=== PATIENT | male | born 1950 | race Caucasian/White ===

== ENCOUNTER 2019-01-16 23:14 | Emergency (ER) | payer BC ==
[~2019-01-16] VITALS: Ht 167.6 cm; Wt 101.6 kg
[~2019-01-16 23:14] MED LIST: ADULT LOW DOSE81 MG PO; KEFLEX500 M1 PO; LASIX; METFORMIN HCL500 MG; SPIRONOLACTONE25 M1; VICODIN
[2019-01-16] MEDS ORDERED: HYDROCHLOROTH12.5 M1 (23:28)
[2019-01-16] MEDS ORDERED: COLESTIPOL HCL1 G1 (23:29)
[2019-01-17] MEDS ORDERED: TRAMADOL 50 MG50 MG PO (00:38)
[2019-01-17] MEDS ORDERED: ROXICODONE5 M2 PO (01:13)
[2019-01-17 01:17] VITALS: BP 134/80
--- NOTE | 2019-01-17 11:23 | EKG ---
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
== END 2019-01-17 01:17 | disposition home or self-care (01) ==
LOC: M.ERS 23:14
DX: S20.212A Contusion of left front wall of thorax, initial encounter (principal); K74.60 Unspecified cirrhosis of liver; Z90.49 Acquired absence of other specified parts of digestive tract; W01.0XXA Fall on same level from slipping, tripping and stumbling without subsequent striking against object, initial encounter; Y92.89 Other specified places as the place of occurrence of the external cause; Y93.89 Activity, other specified; Y99.8 Other external cause status

== ENCOUNTER 2020-01-07 05:56 | Inpatient (IN) | payer OTHER ==
[~2020-01-07] VITALS: Ht 167.6 cm; Wt 107.4 kg
[~2020-01-07 05:56] MED LIST changes: +COLESTIPOL HCL1 G1 PO; +HYDROCHLOROTH12.5 M1; -METFORMIN HCL500 MG; +METFORMIN HCL500 MG PO; +ROXICODONE5 M2 PO; +TRAMADOL 50 MG50 MG PO
[2020-01-07 05:59] VITALS: BP 191/102
[2020-01-07] MEDS ORDERED: TOPROL XL50 MG PO (06:11)
[2020-01-07] MEDS ORDERED: LASIX 20 MG TAB20 MG PO (06:12)
[2020-01-07] MEDS ORDERED: GLYBURIDE PO (06:13)
[2020-01-07] MEDS ORDERED: ALLEGRA ALLERG180 MG PO (06:14)
[2020-01-07 06:32] LABS: HEMATOCRIT 41.7 % (42.0-52.0); HEMOGLOBIN 14.1 gm/dL (14.0-18.0); MCH 27.4 pg (26.0-34.0); MCHC 33.7 g/dL (28.0-37.0); MCV 81.3 fL (80.0-100.0); MPV 10.5 fl. (7.2-11.1); NUCLEATED RBCS 1 /100WBC; RBC 5.13 mil/uL (4.50-6.00); RDW-CV 16.1 % (10.5-14.5)
[2020-01-07 06:33] LABS: WBC 1.9 thou/uL (4.0-11.0)
[2020-01-07 06:34] LABS: CALCIUM 8.3 mg/dL (8.5-10.1); CREATININE 1.1 mg/dL (0.6-1.3); PLATELET COUNT* 46 thou/uL (150-400); POTASSIUM 3.5 mmol/L (3.5-5.1)
[2020-01-07 06:42] LABS: INR 1.2; PROTIME 11.9 Seconds (9.20-11.50)
[2020-01-07 06:44] LABS: ALBUMIN 3.6 g/dL (3.4-5.0)
[2020-01-07 07:09] LABS: ABSOLUTE LYMPHOCYTES 0.6 thou/uL (0.8-5.3); ABSOLUTE MONOCYTES 0.2 thou/uL (0.0-1.2); ABSOLUTE NEUTROPHILS 1.1 thou/uL (1.6-8.1); ATYPICAL LYMPHS 10 %; PLATELET ESTIMATE DECREASED
[2020-01-07 07:27] LABS: URINE BLOOD NEGATIVE (Negative); URINE CLARITY CLEAR; URINE COLOR YELLOW; URINE GLUCOSE-RANDOM NEGATIVE (Negative); URINE KETONES NEGATIVE (Negative); URINE LEUKOCYTES-REFLEX NEGATIVE (Negative); URINE NITRITE-REFLEX NEGATIVE (Negative); URINE PROTEIN TRACE (Negative); URINE SPECIFIC GRAVITY 1.025 (1.005-1.030)
[2020-01-07 07:38] LABS: ICTOTEST (BILI CONFIRMATORY) Negative (Negative); URINE BILIRUBIN 1+ (Negative)
--- NOTE | 2020-01-07 07:52 | NUR ---
DR HAMPTON AT BEDSIDE, EXPLAINING POC WITH PT. PT VERBALIZES UNDERSTANDING
[2020-01-07 12:27] VITALS: BP 174/84
--- NOTE | 2020-01-07 12:46 | NUR ---
DR MEJIA FROM [facility] CALLED IN REFERENCE TO CONSULT, PT STATUS GIVEN TO . NO NEW PHYSICIAN ORDERS AT THIS TIME.
[2020-01-07 13:00] VITALS: BP 166/91
[2020-01-07 13:37] VITALS: BP 174/84
--- NOTE | 2020-01-07 14:00 | NUR ---
ASSUMED CARE OF PATIENT THIS AFTERNOON FROM ER. PT IS DOING WELL AND HAS NO CO OF PAIN OR NAUSEA. PT WAS EDUCATED ON PLAN OF CARE AND DISEASE PROCESS, FALL SAFETY, AND USING THE CALL LIGHT FOR ASSISTANCE. WILL CONTINUE TO MONITOR.
--- NOTE | 2020-01-07 15:29 | EKG ---
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
[2020-01-07 20:00] VITALS: BP 165/92
[2020-01-08] VITALS: BP 171/92
[2020-01-08 03:51] VITALS: BP 163/93; BP 1638/93
--- NOTE | 2020-01-08 06:21 | NUR ---
ASSUMED CARE OF PT AFTER REPORT AT 1930. PT A&OX4. VSS. PHYSICAL ASSESSMENT COMPLETED AND CHARTED. PT ON RA. PT TRACING SR ON TELE. PT UPADLIB TO RESTROOM. PT COMPLAINED OF HEADACHE-MED GIVEN PER SEP. INSTRUCTED ON NPO POST MIDNIGHT FOR STRESSTEST. COMMUNICATES UNDERSTANDING. CALL LIGHT WITHIN REACH.
[2020-01-08 08:00] VITALS: BP 162/93
[2020-01-08 08:06] LABS: ABSOLUTE LYMPHOCYTES 0.9 thou/uL (0.8-5.3); ABSOLUTE MONOCYTES 0.2 thou/uL (0.0-1.2); ABSOLUTE NEUTROPHILS 1.3 thou/uL (1.6-8.1); BASOPHILS 0.9 %; HEMATOCRIT 43.4 % (42.0-52.0); HEMOGLOBIN 14.4 gm/dL (14.0-18.0); LYMPHOCYTES 36.7 %; MCH 27.2 pg (26.0-34.0); MCHC 33.3 g/dL (28.0-37.0); MCV 81.6 fL (80.0-100.0); MPV 10.1 fl. (7.2-11.1); NUCLEATED RBCS 0 /100WBC; PLATELET COUNT* 50 thou/uL (150-400); POLYS 52.4 %; RBC 5.32 mil/uL (4.50-6.00); RDW-CV 15.6 % (10.5-14.5); WBC 2.4 thou/uL (4.0-11.0)
[2020-01-08 08:13] LABS: CALCIUM 8.1 mg/dL (8.5-10.1); CREATININE 1.1 mg/dL (0.6-1.3); POTASSIUM 3.7 mmol/L (3.5-5.1)
--- NOTE | 2020-01-08 10:51 | NUR ---
ASSUMED CARE OF PATIENT THIS AM AT 0730. PATIENT IS ALERT AND ORIENTED X 4. HE DENIES PAIN AND DISCOMFORT. PLANS FOR STRESS TEST TODAY. PATIENT KEPT NPO FOR PROCEDURE. TELE SHOWS NSR. HE CONTINUES IN NEUTRAPENIC PRECAUTIONS. PATIENT IS UP IN THE ROOM INDEPENDENTLY.
[2020-01-08] MEDS ORDERED: COZAAR 50 MG TA50 M1 PO (14:01)
--- NOTE | 2020-01-08 14:24 | NUR ---
Pt is A&O. Resides at home with . Independent. No DME. No hx of HH or SNF. Pt to dc today pending stress test. No needs.
[2020-01-08 16:00] VITALS: BP 155/87
[2020-01-08 20:00] VITALS: BP 137/96
[2020-01-08 23:44] VITALS: BP 156/84
[2020-01-09 04:00] VITALS: BP 153/90
--- NOTE | 2020-01-09 05:15 | NUR ---
ASSUMED CARE OF PT AFTER REPORT TAT 193. PT A&OX4. VSS. PHYSICAL ASSESSMENT COMPLETED AND CHARTED. PT ON RA. PT TRACING SR ON TELE. PT UPADLIB TO RESTROOM. PT DENIES ANY PAIN OR DISCOMFORT. PT FOR 2ND PART OF STRES TEST TODAY. CALL LIGHT WITHIN REACH.
[2020-01-09 08:00] VITALS: BP 177/94
[2020-01-09 08:59] LABS: CHOLESTEROL 136 mg/dL (<200); HDL CHOLESTEROL 24 mg/dL (>40); LDL CHOLESTEROL 60 mg/dL (<100); SERUM ASSESSMENT Clear; TC:HDL 5.7 Ratio (Not establshd); TRIGLYCERIDE 262 mg/dL (<150); VLDL 52 mg/dL (<40)
[2020-01-09 12:00] VITALS: BP 146/90
--- NOTE | 2020-01-09 12:19 | NUR ---
2nd part of Pt's stress test to be completed today, if negative, Pt can dc home. Following.
--- NOTE | 2020-01-09 14:24 | CARDNUC ---
[place] [address] CARDIAC NUCLEAR IMAGING REPORT Name: ROSARIO JHAVERI JR Room: [address] IN [facility]#: [id number] Admission: 01/07/20 Attend Phys: Toribio Erickson, Discharge: Date of : 50 Date of Service: 01/09/20 1423 Report #: [id number] THIS REPORT FOR: cc: Nica Gonzales MD, Jennifer MD Liston, Michael J. MD [facility] ~ APPROVED REPORT Imaging Protocol: Stress Tc-99m/Rest Tc-99m 2 days Study performed: 01/07/2020 11:54:00 Indication: Chest pain, Dyspnea Patient Location: In-Patient Room #: 204 Stress Tech: Dee Prasad Stress Nurse: Pricilla Martinez RN Ht: 5 ft 6 in Wt: 235 lbs BSA: 2.14 m2 BMI: 37.92 Medical History Medical History: Diabetes Medications: colestid, lasix, cozaar, metoprolol, hudralazine Allergies: No known drug allergies Cardiac Risk Factors: Age, DM Previous Cardiac Procedures: PCI Exercise History: Sedentary Resting Data Rest SPECT myocardial perfusion imaging was performed in supine position 60 minutes following the intravenous injection of 36.0 mCi of Tc-99m Sestamibi. Time of rest injection: 11:45 The images were gated to evaluate regional wall motion and calculate left ventricular ejection fraction. Administration Route: IV Administration Site: Left Arm Pharmacologic Stress Pharmacologic stress test was performed by injecting Regadenoson 0.4 mg IV push over 10-15 seconds immediately followed by the intravenous injection of 31.2 mCi of Tc-99m Sestamibi. Time of stress injection: 12:05 Date: 01/08/2020 [place] [address] CARDIAC NUCLEAR IMAGING REPORT Name: ROSARIO JHAVERI JR Room: [address] IN ..#: [id number] Admission: 01/07/20 Attend Phys: Toribio Erickson, Discharge: Date of : 50 Date of Service: 01/09/20 1423 Report #: [id number] Administration Route: IV Administration Site: Left AC Heart Rate at time of stress injection: 124 bpm. Gated Stress SPECT was performed 40 minutes after stress injection. The images were gated to evaluate regional wall motion and calculate left ventricular ejection fraction. Prone imaging was performed. Stress Test Details Stress Test: Pharmacologic stress testing performed using 0.4 mg of regadenoson per 5 mL given IV over 10 seconds. Reason for pharmacologic stress test: physical limitation. HR Max Heart Rate (APMHR): 151 bpm Resting HR: 77 bpm Target HR (85% APMHR): 128 bpm Max HR Achieved: 124 bpm % of APMHR: 82 Recovery HR: 106 bpm BP Resting BP: 177/91 mmHg Max BP: 183/94 mmHg Recovery BP: 167/95 mmHg ECG Resting ECG: Sinus Rhythm Stress ECG: Sinus Tachycardia ST Change: None Arrhythmia: None Recovery ECG: Sinus Rhythm Recovery ST Change: None Recovery Arrhythmia: None Clinical Reason for Termination: Completed protocol The patient tolerated Lexiscan protocol without significant cardiac symptoms. Stress ECG Conclusion The baseline twelve-lead EKG shows sinus rhythm without significant ST segment or T wave abnormality. EKGs obtained during and post Lexiscan infusion show sinus rhythm and sinus tachycardia with no significant ST segment or T wave changes when compared to baseline. There were no stress-induced arrhythmias[place] [address] CARDIAC NUCLEAR IMAGING REPORT Name: ROSARIO JHAVERI JR Room: [address]#: [id number] Admission: 01/07/20 Attend Phys: Toribio Erickson, Discharge: Date of : 50 Date of Service: 01/09/20 1423 Report #: [id number] Study: Good Artifact: Mild Diaphragmatic artifact Study Data Post stress, the left ventricular ejection was 75%.. Perfusion Perfusion images obtained in the supine position at rest and post Lexiscan stress show photopenia of the inferior wall that resolves completely with post-rest prone imaging suggesting diaphragmatic attenuation artifact. No other significant fixed or reversible defects are identified. Wall Motion Normal left ventricular wall motion. Nuclear Conclusion ECG Findings: negative for ischemia Clinical Findings: negative for ischemia Nuclear Findings: negative for ischemia Exercise Capacity: not assessed Left Ventricular Function: normal Risk Study: low Myocardial perfusion images show no defect to suggest infarct or ischemia. Left ventricular systolic function appears normal on gated studies. This is a low risk study. <Conclusion> The baseline twelve-lead EKG shows sinus rhythm without significant ST segment or T wave abnormality. EKGs obtained during and post Lexiscan infusion show sinus rhythm and sinus tachycardia with no significant ST segment or T wave changes when compared to baseline. There were no stress-induced arrhythmias. <ELECTRONICALLY SIGNED> By: Marcos Gant MD, FACC 01/09/20 1423 1423 1423 Marcos Gant MD, FACC /INF
[2020-01-09 15:04] VITALS: BP 146/90
--- NOTE | 2020-01-09 15:53 | NUR ---
PT DISCHARGED HOME AT 1545. DISCHARGE INSTRUCTIONS GONE OVER WITH PATIENT.
--- NOTE | 2020-01-09 16:01 | CON ---
[address] [address] CONSULTATION Name: ROSARIO JHAVERI Room: [address] IN .R.#: [id number] Admission: 01/07/20 Attend Phys: Toribio Erickson MD Discharge: 01/09/20 Date of : 50 Report #: [id number] THIS REPORT FOR: //name// cc: Nica Gonzales MD, Jennifer MD ~ THIS REPORT FOR: //name// CC: Toribio Gonzales MD DATE OF SERVICE: 01/07/2020 CARDIOLOGY CONSULTATION INDICATION: Chest pain. HISTORY OF PRESENT ILLNESS: The patient is a very pleasant 69-year-old gentleman with no prior history of coronary artery disease. Both his mother and father had coronary artery disease. His father had bypass surgery in his 60s. The patient reports midsternal chest discomfort, occurring on several separate occasions since early this morning. The pain is retrosternal in location, described as a pressure. Somewhat reproducible with pressure. He denies any diaphoresis or shortness of breath. There was no radiation. EKG shows sinus rhythm without acute ST or T-wave abnormality. Cardiac enzymes are unremarkable. At the time of interview, the patient appears comfortable. PAST MEDICAL HISTORY: 1. Hepatitis C, status post curative treatment. 2. Hepatic cirrhosis. 3. Bilateral osteoarthritis of the knees, status post arthroscopy. 4. Bilateral rotator cuff surgery. 5. Cholecystectomy. 6. Umbilical hernia repair. 7. Right arm tendon repair. SOCIAL HISTORY: The patient smokes tobacco daily. He drinks alcohol rarely. REVIEW OF SYSTEMS: He reports fatigue, myalgias, headache. He denies fever or cough. ALLERGIES: None documented. [address] [address] CONSULTATION Name: ROSARIO JHAVERI JR Room: [address]#: [id number] Admission: 01/07/20 Attend Phys: Toribio Erickson MD Discharge: 01/09/20 Date of : 50 Report #: [id number] HOME MEDICATIONS: Metformin, colestipol, metoprolol, furosemide, glyburide, fexofenadine. PHYSICAL EXAMINATION: VITAL SIGNS: Stable. Blood pressure 166/91, pulse 68 and regular. GENERAL: This is a pleasant gentleman in no distress. Mood and affect appropriate. HEENT: Extraocular muscles intact. Mucous membranes are moist. NECK: Shows no jugular venous distention. There are no carotid bruits. CHEST: Reveals clear lung corral. CARDIOVASCULAR: Reveals a regular rhythm without gallop or murmur. ABDOMEN: Reveals a protuberant abdomen, soft and nontender. Bowel sounds present. EXTREMITIES: Shows no edema. SKIN: Warm and dry. LABORATORY DATA: Reviewed. Sodium 142, potassium 3.5, chloride 107, bicarbonate 26, BUN 14, creatinine 1.1, serum glucose 143, AST 39, lipase 537. Total bilirubin 1.0, serum calcium 8.3, magnesium 2.0, alkaline phosphatase 83, ALT 61, total protein 7.0, albumin 3.6. EGFR 66. Troponins less than 0.06 on 3 separate occasions. NT-proBNP 264. Coags within normal limits. White blood cell count 1.9, hemoglobin 14.1, platelet count 46,000. Chest x-ray shows no acute cardiopulmonary abnormality. IMPRESSION AND RECOMMENDATIONS: 1. Chest pain. Etiology not clear. The patient does have risk factors for coronary artery disease including family history, diabetes and hypertension. Lipid status is unknown. He also has a history of tobacco use. We will proceed with noninvasive stress testing at this time. Further cardiac intervention pending the results of that study. 2. Hypertension. Blood pressure mildly elevated at this time. Make adjustments as tolerated. With underlying renal disease, would consider the addition of LUCIAN inhibitor or ARB. 3. Lipid status unknown. Check fasting lipid profile. 4. Tobacco use, cessation advised. 5. Neutropenia and thrombocytopenia. Consider hematologic evaluation. <ELECTRONICALLY SIGNED> By: Marcos Gant MD, FACC 01/09/20 1601 1649 12Marcos Gant MD, FACC /nt
--- NOTE | 2020-01-09 16:57 | NUR ---
PRESCRIPTION CALLED TO [facility]. [facility] ON BACK ORDER AT PATIENT'S PHARMACY.
== END 2020-01-09 15:50 | disposition home or self-care (01) | DRG 311 ==
LOC: M.ERS 05:56 → M.TBA-ER 07:28 → M.2W 07:28
PROVIDERS: Emergency Medicine; Internal Medicine Cardiovascular Disease; ADMIT Internal Medicine; ATTEND Internal Medicine
DX: I20.0 Unstable angina (principal); E87.2 Acidosis; D61.818 Other pancytopenia; B34.9 Viral infection, unspecified; K74.60 Unspecified cirrhosis of liver; M17.0 Bilateral primary osteoarthritis of knee; I10 Essential (primary) hypertension; F17.210 Nicotine dependence, cigarettes, uncomplicated; E11.65 Type 2 diabetes mellitus with hyperglycemia; Z86.19 Personal history of other infectious and parasitic diseases; Z90.49 Acquired absence of other specified parts of digestive tract; Z71.6 Tobacco abuse counseling; Z03.818 Encounter for observation for suspected exposure to other biological agents ruled out